=== PATIENT | female | born 1945 | race Two or more races ===

== ENCOUNTER 2020-07-07 02:40 | Emergency (ER) | payer MEDICARE, OTHER ==
[~2020-07-07] VITALS: Ht 157.5 cm; Wt 79.3 kg
[2020-07-07] MEDS ORDERED: PLEASE ENTER ALLERGIES MC SCH (03:00)
[2020-07-07] MEDS ORDERED: ONDANSETRON 2MG/ML, 2ML IVPush ONE (03:00)
[2020-07-07 03:01] LABS: BASOPHILS % (AUTO) 0 % (0-1); EOSINOPHILS % (AUTO) 0 % (1-7); LYMPHOCYTES % (AUTO) 13 % (22-44); MEAN CORPUSCULAR HEMOGLOBIN 29.4 pg (27.0-34.8); MEAN CORPUSCULAR HGB CONC 33.8 g/dL (32.4-35.8); MEAN PLATELET VOLUME 9.4 fL (7.4-10.4); MONOCYTES % (AUTO) 3 % (2-9); NEUTROPHILS % (AUTO) 84 % (42-75); PLATELET COUNT 244 x10^3/uL (130-400); RED BLOOD COUNT 4.59 x10^6/uL (3.82-5.3); RED CELL DISTRIBUTION WIDTH 14.5 % (9.6-15.2)
[2020-07-07 03:02] LABS: MD NO
[2020-07-07 03:07] LABS: MICROSCOPIC AUTO
--- NOTE | 2020-07-07 03:08 | NUR ---
Pt traveling from [place], states starting having right flank pain after lying down for bed tonight. Pt states having n/v. Pt states having difficulty going to [place]. Pt denies SOB or CP. Pt to room, on monitor, IV placed. Labs sent. warm blanket given. at bedside. Pt states she does not want pain meds. Zofran given for nausea.
[2020-07-07 03:11] LABS: ALANINE AMINOTRANSFERASE 72 U/L (12-78); ALBUMIN 4.5 g/dL (3.4-5.0); ANION GAP 10 mmol/L (5-15); CALCIUM 10.2 mg/dL (8.5-10.1); CHLORIDE 106 mmol/L (98-107); CREATININE 1.26 mg/dL (0.55-1.02)
[2020-07-07 03:13] LABS: ALKALINE PHOSPHATASE 78 U/L (45-117); BILIRUBIN,TOTAL 0.6 mg/dL (0.2-1.0); TOTAL PROTEIN 8.6 g/dL (6.4-8.2)
[2020-07-07] MEDS ORDERED: KETOROLAC 30 MG/1 ML ONE (04:18)
[2020-07-07] MEDS ORDERED: KETOROLAC 30 MG/1 ML IVPush ONE (04:30)
[2020-07-07 05:01] VITALS: BP 170/77
--- NOTE | 2020-07-07 05:04 | NUR ---
Pt states feeling better and wanting to go home. IV dc'd intact. Pt with stable VS. Patient/Caregiver given discharge instructions and they have confirmed that they understand the instructions. Patient ambulatory with steady gait.
== END 2020-07-07 05:07 | disposition home or self-care (01) ==
LOC: ED 03:47
DX: N13.2 Hydronephrosis with renal and ureteral calculous obstruction (principal); R10.11 Right upper quadrant pain; M54.5 Low back pain; R11.2 Nausea with vomiting, unspecified; Z90.49 Acquired absence of other specified parts of digestive tract; Z98.51 Tubal ligation status
CPT/HCPCS: 36415; 74176; 80053; 81001; 83690; 85025; 96374; 96375; 99284; J1885; J2405